=== PATIENT | female | born 1970 | race Caucasian/White ===

== ENCOUNTER 2017-07-04 08:00 | Emergency (ER) | payer BC ==
[2017-07-04] MEDS ORDERED: KETOROLAC TROMETHAMINE 30 MG/ML VIAL IM ONE (08:21)
--- NOTE | 2017-07-04 08:22 | ERNOTE ---
Abdominal HPI - Narrative Date of Service: 07/04/17 - General Chief Complaint: Abdominal Pain Time Seen by Provider: 07/04/17 08:22 Source: patient Exam Limitations: no limitations - Immun/Allergies/Home Medications Immunizatons: IMMUNIZATION HX Immunizations Up to Date Yes History of Influenza Vaccine Yes Hx Pneumococcal Vaccination No Allergies/Adverse Reactions: Allergies No Known Allergies Allergy (Verified 07/04/17 08:13) Home Medications: HOME MEDICATIONS Levofloxacin [Levaquin] 500 mg PO DAILY 07/04/17 [Last Taken Unknown] Metoprolol Tartrate [Lopressor] 50 mg PO DAILY 07/04/17 [Last Taken Unknown] Naproxen [Naprosyn] 375 mg PO BID #10 tab 07/04/17 [Last Taken Unknown] Promethazine HCl/Codeine [Prometh-Codein 6.25-10 mg/5 ml] 5 ml PO Q4H PRN [Last Taken Unknown] Rosuvastatin Calcium 20 mg PO DAILY 07/04/17 [Last Taken Unknown] Venlafaxine HCl [Venlafaxine HCl ER] 75 mg PO BID 07/04/17 [Last Taken Unknown] Zolpidem Tartrate 5 mg PO HS 07/04/17 [Last Taken Unknown] busPIRone HCL [Buspar] 1 - 2 tab PO HS 07/04/17 [Last Taken Unknown] - History of Present Illness Narrative: Patient presents to the ED for right sided rib pain. She has been sick for 2 weeks with the "flu". She relates that she had been coughing severely and has had right sided rib pain for 2 nearly two weeks also. SHe has been to the Chiropractor twice for this and been adjusted but it is worse over the last couple of days. She has also seen her PCP and been started on codeine cough syrup and Abx which she is taking. Mild SOB d/t pain, no acute. No calf pain or leg swelling. Nothing to suggest PE or DVT. Pain worse with movement and palpation. Pain can be severe with cough and palpation. Rught low ribs. NO clear abdominal pain. No hemoptysis. Timing: constant, getting worse Quality: moderate Activities at Onset: other - cough Modifying Factors - (Improves): Present: rest Modifying Factors - (Worsens): Present: coughing, movement, other - palpation Associated Symptoms: Absent: back pain, neck pain, fever/chills, vomiting Prior Abdominal Problems: Present: none Prior Treatment: Present: recently seen Review of Systems - Review of Systems Constitutional: Absent: fever ENT: Absent: sore throat Respiratory: Present: cough Cardiology: Present: See HPI Gastrointestinal/Abdominal: Absent: vomiting, diarrhea Genitourinary: Present: decreased urinary output. Absent: dysuria Skin: Absent: rash Neurological: Absent: weakness - Patient's Past Medical History Patient History - Medical: Anxiety, Depression, Migraines Patient History - Cardiac/Respiratory: Hypertension Patient History - Cancer: No Hx of Cancer Patient History - Surgical Procedures: Tubal Ligation Patient History - Other: None - Family History Mother Family History - Medical: Diabetes Type 2 - Social History Living Situations: home Psych History: Hx of Anxiety, Hx of Depression Smoking Status: Current every day smoker Have you smoked in the past 12 months: Yes - Immunizations Immunizations Up to Date: Yes Hx Pneumococcal Vaccination: No History of Influenza Vaccine: Yes Physical Exam - Physical Exam General Appearance: Present: alert, no apparent distress, other - occasoinal cough for which she holds her right side Head Exam: Present: normal inspection, no evidence of injury Eye Exam: Normal inspection: bilateral, PERRL: bilateral Ears, Nose, Throat: Present: normal ENT inspection Neck: Present: normal inspection Respiratory: Present: no respiratory distress, lungs clear, other - tubular breath sounds right base Cardiovascular/Chest: Present: regular rate, rhythm, normal peripheral pulses, other - right low rib tenderness seems to completely reproduce her Sx. Gastrointestinal/Abdominal: Present: normal bowel sounds, nondistended, soft, other - there is mild tenderenss with RUQ palpation but this seems to be on the ribs and not specifically RUQ. Back Exam: Present: normal inspection, normal range of motion. Absent: CVA tenderness (R), CVA tenderness (L) Extremity Exam: Present: normal inspection, non-tender, other - no DVT findings Neurological Exam: Present: alert, normal mood/affect, no motor/sensory deficits Skin Exam: Present: normal color, warm/dry ED Progress - Results and Orders Patient's Lab Results:: I have reviewed the patient's lab results. - Vital Signs Patient's Vital Signs:: I have reviewed the patient's vital signs. Vital Signs: Vital Signs 07/04/17 08:07 Temperature 36.3 C L Pulse Rate 102 H Respiratory 18 Rate Blood Pressure 159/90 O2 Sat by Pulse 97 Oximetry - X-Ray X-Ray #1 X-Ray: chest Interpretation: Interp. by me X-ray Comments: I reviewed images and official radiology report X-Ray #2 X-Ray: ribs Interpretation: Interp. by me X-ray Comments: I reviewed images and official radiology report - CT/Ultrasound CT/Ultrasound Narrative: I reviewed official radiology report - Progress/Reassessment Chief Complaint: Abdominal Pain Progress Note-Subjective: 07/04/17 11:44 Her pain seemed primarily reproduced right low rib palpation. I spoke with Dr Avitia and discussed her labs and exam/imaging/US. He recommends continued antibiotics and office f/u Saturday. Pt agreeable. Currently stable, non-toxic, no distress and improved with Toradol. I discussed warning signs and reasons to return as well as the need for close f/u. 07/04/17 11:47 Nothing to suggest PE, sepsis, toxicity or other clear acute life threat. Departure Clinical Impression: Rib pain, URI (upper respiratory infection), Cholelithiasis - Departure Disposition: Home self-care Condition: Stable Instructions: Cholelithiasis, [id number] Additional Instructions: Continue your antibiotics. Dr Avitia will see you in the office Saturday. Return here sooner for fever, increased pain, vomiting or if your condition worsens or changes in any way. Referrals: Poly Nguyen MD [Primary Care Provider] - Prescriptions: Naproxen [Naprosyn] 375 mg PO BID #10 tab
[2017-07-04] MEDS ORDERED: KETOROLAC TROMETHAMINE 30 MG/ML VIAL ONE (08:41)
[2017-07-04 08:42] LABS: Hematocrit 44.8 % (37.0-47.0); Hemoglobin 15.4 gm/dL (12.5-16.0); Mean Cell Volume 93.7 fl (78-100); Mean Corpuscular Hemoglobin 32.2 pg (27-31); Mean Corpuscular Hgb Conc 34.4 g/dl (32-36); Mean Platelet Volume 10.1 fl (6.0-9.5); Neutrophil # 13.4 K/mm3 (1.3-6.0); Neutrophil % 80.9 % (42-75.0); Platelet Count 242 K/mm3 (150-450); Red Blood Count 4.78 M/mm3 (4.2-5.4); Red Cell Distribution Width 12.6 % (11.5-14.0); White Blood Count 16.6 K/mm3 (4.0-10.5)
[2017-07-04 08:53] LABS: Albumin * 3.8 gm/dl (3.4-5.0); BUN/Creatinine Ratio 35.5 (9.0-21.6); Bilirubin, Total 0.3 mg/dL (0.0-1.1); Ca. Corrected For Albumin 9.5 mg/dL (8.4-10.2); Calcium * 9.7 mg/dL (7.9-10.9); Carbon Dioxide 26.5 mmol/L (24-32.6); Potassium 4.5 mmol/L (3.4-4.6); Total Protein 7.6 gm/dL (6.2-8.2)
[2017-07-04 11:40] VITALS: BP 137/87
== END 2017-07-04 11:58 | disposition home or self-care (01) ==
LOC: ER 08:00
DX: K80.20 Calculus of gallbladder without cholecystitis without obstruction (principal); J06.9 Acute upper respiratory infection, unspecified; R07.81 Pleurodynia; F17.200 Nicotine dependence, unspecified, uncomplicated; F41.9 Anxiety disorder, unspecified

== ENCOUNTER 2017-07-12 11:46 | Day surgery (SDC) | payer BC ==
[~2017-07-12 11:46] MED LIST: RINGER'S SOLUTION,LACTATED 1,000 ML IV PRN
[2017-07-12] MEDS ORDERED: RINGER'S SOLUTION,LACTATED 1,000 ML IV ONE ×2 (12:32→15:00)
[2017-07-12] MEDS ORDERED: BUPIVACAINE HCL 50 ML VIAL IJ ONE (15:05)
--- NOTE | 2017-07-12 16:09 | OR ---
Operative Report - Dictated Report Narrative: Date: 07/12/2017 Preoperative diagnosis: Chronic cholecystitis Postoperative diagnosis: Same Procedure: Laparoscopic cholecystectomy Staff surgeon: Mehul Avitia MD Anesthesia: Gen. endotracheal EBL: 20 mL Specimens: Gallbladder Drains: None Complications: None apparent Description: Patient was placed in the supine position and following the smooth induction of general endotracheal anesthesia the abdomen was prepped and draped in a sterile fashion all port sites were anesthetized with Marcaine prior to incision. An infraumbilical incision was carried out and the abdomen was entered under direct vision with a 5 mm blunt port with the scope within the lumen of the trocar the abdomen was then insufflated to a pressure of 15 mmHg with carbon dioxide. Under direct vision a superior midline 12 mm port into right flank 5 mm ports were inserted. The fundus of the gallbladder was grasped and elevated towards the diaphragm. The infundibulum was grasped for countertraction. Dissection around the cystic duct was carried out and there was an anterior cystic artery was doubly clipped and divided. The cystic duct was isolated and doubly clipped and divided. There was a small posterior branch that was clipped and divided. The gallbladder was then taken out of the fossa with combination of blunt dissection scissor dissection electrocautery. Once liberated the gallbladder was placed in an Endo Catch bag and delivered through the superior midline port. This port was returned to the abdominal cavity. Pneumoperitoneum was reestablished. Inspection was carried out. Hemostasis appeared to be adequate. There was no evidence of bile leak. The right upper quadrant was irrigated and the irrigant was evacuated. The remainder of the Marcaine was squirted into the peritoneal cavity. The superior midline fascial defect was closed using a Luis Saroj device and heavy Vicryl suture. The pneumoperitoneum was evacuated. The remainder of the ports were removed. The incisions were closed with subcuticular stitches of 4-0 Vicryl and sealed with Dermabond. The patient tolerated the procedure well without any apparent complications and was discharged from the operating room in stable condition.
[2017-07-12] MEDS ORDERED: HYDROcodone/ACETAMINOPHEN 1 EACH TABLET ONE ×2 (17:04)
[2017-07-12 18:13] VITALS: BP 151/97
== END 2017-07-12 11:47 | disposition home or self-care (01) ==
LOC: AMB 11:46
PROVIDERS: ATTEND Specialist
PROC: 0FT44ZZ Resection of Gallbladder, Percutaneous Endoscopic Approach (ICD-10-PCS; principal; 2017-07-12 13:55)
DX: K81.1 Chronic cholecystitis (principal); I10 Essential (primary) hypertension; F17.200 Nicotine dependence, unspecified, uncomplicated; Z68.26 Body mass index [BMI] 26.0-26.9, adult

== ENCOUNTER 2017-08-26 06:59 | Emergency (ER) | payer BC ==
[2017-08-26 07:43] LABS: Hematocrit 43.3 % (37.0-47.0); Hemoglobin 14.7 gm/dL (12.5-16.0); Mean Cell Volume 91.7 fl (78-100); Mean Corpuscular Hemoglobin 31.1 pg (27-31); Mean Corpuscular Hgb Conc 33.9 g/dl (32-36); Mean Platelet Volume 10.1 fl (6.0-9.5); Neutrophil # 6.7 K/mm3 (1.3-6.0); Neutrophil % 68.3 % (42-75.0); Platelet Count 270 K/mm3 (150-450); Red Blood Count 4.72 M/mm3 (4.2-5.4); Red Cell Distribution Width 12.7 % (11.5-14.0); White Blood Count 9.9 K/mm3 (4.0-10.5)
--- NOTE | 2017-08-26 07:46 | ERNOTE ---
Chest Pain/Cardiac HPI Date of Service: 08/26/17 Chief Complaint: Chest Pain Time Seen by Provider: 08/26/17 07:23 Source: patient Exam Limitations: no limitations Immunizations: IMMUNIZATION HX Immunizations Up to Date Yes History of Influenza Vaccine Yes Hx Pneumococcal Vaccination No Allergies/Adverse Reactions: Allergies No Known Allergies Allergy (Verified 08/26/17 07:14) Home Medications: HOME MEDICATIONS Rosuvastatin Calcium 20 mg PO DAILY 07/04/17 [Last Taken Unknown] Venlafaxine HCl [Venlafaxine HCl ER] 75 mg PO DAILY 07/04/17 [Last Taken Unknown ] Zolpidem Tartrate 5 mg PO HS 07/04/17 [Last Taken Unknown] busPIRone HCL [Buspar] 1 - 2 tab PO HS 07/04/17 [Last Taken Unknown] Ibuprofen [Motrin] 800 mg PO TID #15 tablet 07/12/17 [Last Taken Unknown] Metoprolol Tartrate [Lopressor] 100 mg PO BID 07/12/17 [Last Taken 07/12/17 10: 30] Narrative: left scapular pain for the last few months. No injury. No strain. She has had left anterior chest pain since yesterday afternoon. Hurts with breathing and movement. Some cough, no sputum. Is a smoker. No hemoptysis. No rash. No abd pain. No cardiac history except hypertension, is on metoprolol. Timing: constant Severity/Quality: moderate, sharp Location: left chest Chest Pain Radiation: arms Activities at Onset: none Modifying Factors - Improves: Present: breathing, movement Aspirin Treatment Today: no aspirin today Associated Symptoms: Present: denies symptoms Prior Chest Pain/Cardiac Workup: Reports: no prior cardiac workup Review of Systems - Review of Systems Constitutional: Absent: fever, chills ENT: Present: no symptoms reported Respiratory: Present: cough. Absent: wheezing Cardiology: Present: chest pain. Absent: syncope, edema Gastrointestinal/Abdominal: Present: no symptoms reported Genitourinary: Present: no symptoms reported Musculoskeletal: Present: no symptoms reported Skin: Present: no symptoms reported Neurological: Present: no symptoms reported - Patient's Past Medical History Patient History - Medical: Anxiety, Depression, Migraines Patient History - Cardiac/Respiratory: Hypertension Patient History - Cancer: No Hx of Cancer Patient History - Surgical Procedures: Cholecystectomy, Tubal Ligation, Other Patient History - Other: None LMP (females 10-50): last week - Family History Mother Family History - Medical: Diabetes Type 2 Family History - Cardiac/Respiratory: Hypertension, Other Family History - Cancer: No pertinent family hx Father Family History - Medical: No pertinent hx Family History - Cardiac/Respiratory: Hypertension, Other Family History - Cancer: No pertinent family hx - Social History Living Situations: home Abuse History: No History of abuse Psych History: Hx of Anxiety, Hx of Depression Smoking Status: Current every day smoker Have you smoked in the past 12 months: Yes Do you dip or chew tobacco: No Alcohol Use: occasionally Drug Use: none - Immunizations Immunizations Up to Date: Yes Hx Pneumococcal Vaccination: No History of Influenza Vaccine: Yes Physical Exam - Physical Exam General Appearance: Present: wd/wn, alert, mild distress Head Exam: Present: normal inspection Neck: Present: normal inspection, full range of motion Respiratory: Present: chest tenderness - left upper CC joints, wheezing - left upper anterior chest. Absent: respiratory distress, accessory muscle use, decreased breath sounds Cardiovascular/Chest: Present: regular rate, rhythm, tachycardia Gastrointestinal/Abdominal: Present: normal bowel sounds, nontender, no organomegaly Back Exam: Present: normal inspection, no CVA tenderness, other - mild tender over left scapula Neurological Exam: Present: alert, oriented ED Progress - Vital Signs Patient's Vital Signs:: I have reviewed the patient's vital signs. Vital Signs: Vital Signs 08/26/17 08/26/17 07:10 07:15 Temperature 36.6 C Pulse Rate 91 90 Respiratory 12 Rate Blood Pressure 149/91 O2 Sat by Pulse 97 Oximetry - EKG EKG: other - sinus tachycardia, otherwise unremarkable EKG read: Reviewed by me - Progress/Reassessment Chief Complaint: Chest Pain - Transfer of Care Physician Sign Out: Luis Angel Morales Brief History: smoker, left anterior chest pain, wheeze Receiving Physician: Amauri Sales Pending Results: Labs, X-ray results Expected Disposition: Discharge Departure Clinical Impression: Chest pain in adult - Departure Disposition: [facility] Condition: Stable Referrals: Poly Nguyen MD [Primary Care Provider] -
[2017-08-26 08:01] LABS: Troponin I Less than 0.017 ng/ml (0.00-0.10)
[2017-08-26 08:06] LABS: ALT 49 U/L (19-67); AST 23 U/L (0-48); Albumin * 3.5 gm/dl (3.4-5.0); Alkaline Phosphatase * 80 U/L (50-170); Anion Gap 11.7 mmol/L (6.8-13.8); BUN/Creatinine Ratio 17.3 (9.0-21.6); Bilirubin, Total 0.2 mg/dL (0.0-1.1); Blood Urea Nitrogen 14 mg/dL (3-23); Ca. Corrected For Albumin 8.9 mg/dL (8.4-10.2); Calcium * 8.8 mg/dL (7.9-10.9); Carbon Dioxide 26.4 mmol/L (24-32.6); Chloride 101 mmol/L (97-106); Glucose * 122 mg/dL (70-110); Potassium 4.1 mmol/L (3.4-4.6); Sodium 135 mmol/L (132-142)
[2017-08-26 09:00] VITALS: BP 145/77
== END 2017-08-26 08:49 | disposition home or self-care (01) ==
LOC: ER 06:59
DX: F17.200 Nicotine dependence, unspecified, uncomplicated; I10 Essential (primary) hypertension; R07.89 Other chest pain; F41.9 Anxiety disorder, unspecified

== ENCOUNTER 2020-07-16 17:11 | Observation (INO) ==
[2020-07-16] MEDS ORDERED: ADENOSINE 3 MG/ML DISP.SYRIN IV ONE ×2 (17:26→17:30)
[2020-07-16] MEDS ORDERED: METOPROLOL TARTRATE 1 MG/ML AMPUL IV ONE ×3 (17:36→18:16)
[2020-07-16 17:40] LABS: Hematocrit 55.4 % (37.0-47.0); Hemoglobin 18.6 gm/dL (12.5-16.0); Mean Cell Volume 99.3 fl (78-100); Mean Corpuscular Hemoglobin 33.3 pg (27-31); Mean Corpuscular Hgb Conc 33.6 g/dl (32-36); Neutrophil # 11.5 K/mm3 (1.3-6.0); Neutrophil % 79.9 % (42-75.0); Platelet Count 288 K/mm3 (150-450); Red Blood Count 5.58 M/mm3 (4.2-5.4); Red Cell Distribution Width 14.3 % (11.5-14.0); White Blood Count 14.3 K/mm3 (4.0-10.5)
[2020-07-16] MEDS ORDERED: ASPIRIN 81 MG TAB.CHEW PO ONE (17:49)
[2020-07-16] MEDS ORDERED: NORMAL SALINE 1,000 ML IV ONE (17:49)
[2020-07-16 17:54] LABS: Prothrombin Time (Patient) 10.6 Seconds (9.1-10.7)
[2020-07-16 17:58] LABS: INR 1.07 INR (0.92-1.08); Partial Thrombolplastin Time 24.8 Seconds (24-32)
[2020-07-16 18:00] LABS: Albumin * 3.8 gm/dl (3.4-5.0); Anion Gap 23.8 mmol/L (6.8-13.8); BUN/Creatinine Ratio 5.4 (9.0-21.6); Bilirubin, Total 0.6 mg/dL (0.0-1.1); Calcium * 9.2 mg/dL (7.9-10.9); Potassium 3.8 mmol/L (3.4-4.6); Total Protein 8.4 gm/dL (6.2-8.2); Troponin I 0.056 ng/mL (0.00-0.10)
--- NOTE | 2020-07-16 18:03 | ERNOTE ---
Chest Pain/Cardiac HPI Date of Service: 07/16/20 Chief Complaint: Chest Pain Time Seen by Provider: 07/16/20 17:15 Source: patient, RN notes reviewed Exam Limitations: no limitations Immunizations: IMMUNIZATION HX Immunizations Up to Date Yes History of Influenza Vaccine No Hx Pneumococcal Vaccination No Allergies/Adverse Reactions: Allergies No Known Allergies Allergy (Verified 07/01/20 15:39) Home Medications: HOME MEDICATIONS Metoprolol Tartrate [Lopressor] 100 mg PO BID 07/12/17 [Last Taken 05/25/19 21:00] hydrochlorothiazide 25 mg tablet 25 mg PO DAILY 04/28/18 [Last Taken Unknown] omeprazole 40 mg capsule,delayed release 40 mg PO DAILY capsule. 01/18/20 [Last Taken Unknown] potassium chloride 10 mEq tablet,extended release 20 meq PO DAILY tab 01/18/20 [Last Taken Unknown] Narrative: Vane 50-year-old female who presents to the emergency department for chest pain and palpitations. She also reports a headache for 3 days. She states that her heart has been beating extremely fast all day. She has occasional episodes of this which usually resolve after a few minutes. She also has migraine headaches. She describes her chest pain as a pressure in the anterior chest. She takes metoprolol for high blood pressure and for her migraines. She attempted to take this today but vomited. She did not have the symptoms when she woke up this morning. She states that she got up briefly and then went back to bed. Her symptoms started shortly afterward. She reports having a cough, but admits that she is a smoker. 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 She was tested and this was negative at that time. He does not believe she has had fevers. She sees a neurologist for her headaches. Her migraine medication was recently changed. She also sees cardiology (Dr. Carl) for her blood pressure. Her LMP was 07/05/20. Date (Duration): 07/16/20 Timing: constant Severity/Quality: pressure Location: substernal Chest Pain Radiation: no radiation Activities at Onset: rest Modifying Factors - Improves: Present: nothing Modifying Factors - Worsens: Present: nothing Nitro Today/Relief: no nitro taken today Aspirin Treatment Today: no aspirin today Associated Symptoms: Present: headache, nausea, vomiting Prior Chest Pain/Cardiac Workup: Reports: prior chest pain. Denies: heart attack Prior Treatment: Reports: recently seen Review of Systems - Review of Systems Constitutional: Present: fatigue, malaise. Absent: fever EYE: Absent: eye pain, vision changes ENT: Absent: ear pain, nose congestion, nasal drainage, sore throat Respiratory: Present: shortness of breath, cough Cardiology: Present: chest pain, palpitations. Absent: edema Gastrointestinal/Abdominal: Present: nausea, vomiting. Absent: diarrhea, abdominal pain Genitourinary: Present: no symptoms reported Musculoskeletal: Absent: muscle pain, joint pain Skin: Absent: rash, lesions Neurological: Present: headache. Absent: dizziness/light-headedness Endocrine: Present: no symptoms reported Hematologic/Lymphatic: Absent: easy bruising, easy bleeding Psych: Present: no symptoms reported Medical History (Last Reviewed 07/16/20 @ 19:40 by Elsa Arenas NP) De Quervain's tenosynovitis, right (Acute) Hypertension Onset Date: Unknown Migraine Onset Date: Unknown Gestational diabetes Onset Date: Unknown Surgical History: Surgical History (Last Reviewed 07/16/20 @ 19:40 by Elsa Arenas NP) History of laparoscopic cholecystectomy Onset Date: 07/12/17 History of shoulder surgery Onset Date: Unknown right shoulder, Dr Singleton. 2002 History of tubal ligation Onset Date: ~1997 Family History: Family History (Last Reviewed 07/16/20 @ 19:40 by Elsa Arenas NP) Father Hypertension Heart disease Mother Heart disease Hypertension Diabetes Social History: (Last Reviewed 07/16/20 @ 19:40 by Elsa Arenas NP) Social History: Marital status: number of children: 2 Service: No Tobacco: Smoking Status: Current every day smoker Smoking cigarettes per day: 20 Alcohol: alcohol intake: current alcohol intake frequency: a few times a month Substance Use: substance use type: does not use Dietary Habits: caffeine: Yes Physical Exam - Physical Exam General Appearance: Present: wd/wn, alert, moderate distress Head Exam: Present: normal inspection Eye Exam: Normal inspection: bilateral Neck: Present: normal inspection, nontender, supple Respiratory: Present: normal breath sounds, lungs clear, accessory muscle use - mild dyspnea Cardiovascular/Chest: Present: no murmur, tachycardia Extremity Exam: Present: normal inspection, normal range of motion, no edema Neurological Exam: Present: alert, oriented, normal mood/affect, no motor/sensory deficits Skin Exam: Present: normal color, warm/dry Progress - Results and Orders Patient's Lab Results:: I have reviewed the patient's lab results. - Vital Signs Patient's Vital Signs:: I have reviewed the patient's vital signs. Vital Signs: Vital Signs 07/16/20 17:11 07/16/20 17:39 07/16/20 17:49 Temperature 36.4 C Pulse Rate 169 H 146 H 112 H Respiratory Rate 19 Blood Pressure 175/116 H 190/120 H 165/109 H O2 Sat by Pulse Oximetry 98 - EKG EKG #1 EKG: supraventricular tachycardia - Rate 171 EKG read: Reviewed by me EKG #2 EKG: NSR - Rate 97 EKG read: Reviewed by me - X-Ray X-Ray #1 X-Ray: chest Interpretation: Interp. by me X-ray Comments: No acute cardiopulmonary findings - Progress/Reassessment Chief Complaint: Chest Pain Progress:: Improved Progress Note-Subjective: 07/16/20 18:56 The patient was initially given 2 doses of adenosine. There was no change with the first dose of 6 mg. The second dose of 12 mg of briefly slowed her heart rate but it again returned to the 170s. She was then given metoprolol 5 mg IV push. Her heart rate improved to the 130s. After a second dose, her heart rate was in the low 100s. A third dose was given and she has since been mostly in the upper 90s. Her blood pressure was initially elevated in the 170s over 110's. This has improved somewhat but was still elevated at 150/106 when last taken. Her chest pain and dyspnea resolved with improvement in her heart rate. She was also given Toradol, Reglan and Benadryl for her headache, which has now resolved. Dr. Nuno was contacted and the patient will be admitted to observation pending her COVID-19 results. Departure Clinical Impression: SVT (supraventricular tachycardia) Chest pain Qualifiers: Chest pain type: unspecified Qualified Code(s): R07.9 - Chest pain, unspecified - Departure Disposition: Still a patient Condition: Stable Referrals: Poly Nguyen MD [Primary Care Provider] -
[2020-07-16] MEDS ORDERED: METOCLOPRAMIDE HCL 5 MG/ML VIAL IV ONE (18:16)
[2020-07-16] MEDS ORDERED: diphenhydrAMINE HCL 50 MG/ML VIAL IV ONE (18:16)
[2020-07-16] MEDS ORDERED: KETOROLAC TROMETHAMINE 30 MG/ML VIAL IV ONE (18:16)
[2020-07-16 20:39] LABS: Urine Bilirubin 1 mg/dl (NEGATIVE); Urine Blood 50 /ul (NEGATIVE); Urine Ketone Large mg/dL (NEGATIVE); Urine Nitrite Negative (NEGATIVE); Urine Protein 100 mg/dL (NEGATIVE); Urine Specific Gravity >=1.030 SP.GR. (1.005-1.010); Urine Urobilinogen Normal (NORMAL)
[2020-07-16 20:52] LABS: Urine Appearance Cloudy (CLEAR); Urine Bacteria 1+; Urine Color Yellow; Urine RBC 0-5 /hpf (0-5); Urine WBC TRACE /hpf (0-5)
[2020-07-17] MEDS ORDERED: NITROGLYCERIN 0.4 MG/TAB BTL SL ONE (05:26)
[2020-07-17] MEDS ORDERED: NITROGLYCERIN 0.4 MG/TAB BTL SL PRN (05:29)
[2020-07-17] MEDS ORDERED: METOPROLOL TARTRATE 1 MG/ML AMPUL IV ONE ×2 (05:29→05:30)
[2020-07-17] MEDS ORDERED: METOPROLOL TARTRATE 50 MG TABLET ONE (07:23)
[2020-07-17] MEDS ORDERED: METOPROLOL TARTRATE 100 MG TABLET PO SCH ×2 (09:00→21:00)
[2020-07-17] MEDS ORDERED: HYDROCHLOROTHIAZIDE 25 MG TABLET PO SCH (11:00)
--- NOTE | 2020-07-17 12:04 | HPDIS ---
Chief Complaint - Chief Complaint Date of Service: 07/17/20 Time of Service: 08:00 Chief Complaint: Racing heart History of Present Illness: Vane is a 50 yo female with known history of recurrent SVT. She reports having an episode yesterday that did not go away. She reports she often has symptoms of fast heart rate but they will typically resolve on their own within minutes. Yesterday's episode continued and she presented to the [facility] ER. She was given Adenosine twice in the ER without improvement. She was given IV metoprolol which helped to bring down her heart rate and resolve her symptoms. She went from 160s to 112 after metoprolol. Her initial troponin was normal. She has been taking all of her home medications, she avoids caffeine, and has not felt ill. She reports staying well hydrated and has been eating normally. She normally follows with Dr. Carl for Cardiology. She cannot think of anything that has been different in the last few days. When she was given her home oral metoprolol this morning her heart rate went down to 70 bpm. She denies missing any doses of medication. Medical History (Last Reviewed 07/16/20 @ 21:47 by Kary Mg RN) De Quervain's tenosynovitis, right (Acute) Hypertension Onset Date: Unknown Migraine Onset Date: Unknown Gestational diabetes Onset Date: Unknown Surgical History: Surgical History (Last Reviewed 07/16/20 @ 21:47 by Kary Mg RN) History of laparoscopic cholecystectomy Onset Date: 07/12/17 History of shoulder surgery Onset Date: Unknown right shoulder, Dr Singleton. 2002 History of tubal ligation Onset Date: ~1997 Family History: Family History (Last Reviewed 07/16/20 @ 21:47 by Kary Mg RN) Father Hypertension Heart disease Mother Heart disease Hypertension Diabetes Social History: (Last Reviewed 07/16/20 @ 21:47 by Kary Mg RN) Social History: Marital status: number of children: 2 Service: No Tobacco: Smoking Status: Current every day smoker Smoking cigarettes per day: 20 Alcohol: alcohol intake: current alcohol intake frequency: a few times a month Substance Use: substance use type: does not use Dietary Habits: caffeine: Yes Review Of Systems (GEN) - Review of Systems Generalized/Overall Review: Absent: Weakness, Chills, Fever EENTM: Present: No Symptoms Reported Respiratory: Present: Shortness of Breath. Absent: Cough Cardiac: Present: Palpitations. Absent: Chest Pain, Edema Abdominal: Absent: Nausea, Vomiting Genitourinary: Present: No Symptoms Reported Musculoskeletal: Present: No Symptoms Reported Neurological: Present: No Symptoms Reported Skin: Present: No Symptoms Reported Endocrine: Present: No Symptoms Reported Immunizations: IMMUNIZATION HX Immunizations Up to Date Yes History of Influenza Vaccine No Hx Pneumococcal Vaccination No Allergies/Adverse Reactions: Allergies Allergy/AdvReac Type Severity Reaction Status Date / Time No Known Allergies Allergy Verified 07/01/20 15:39 Home Medications: HOME MEDICATIONS Metoprolol Tartrate [Lopressor] 100 mg PO BID 07/12/17 [Last Taken 05/25/19 21:00] hydrochlorothiazide 25 mg tablet 25 mg PO DAILY 04/28/18 [Last Taken Unknown] omeprazole 40 mg capsule,delayed release 40 mg PO DAILY capsule. 01/18/20 [Last Taken Unknown] potassium chloride 10 mEq tablet,extended release 20 meq PO DAILY tab 01/18/20 [Last Taken Unknown] Exam - Exam Vital Signs: Vital Signs - Last Taken Temp 36.4 C 07/17/20 09:54 Pulse 70 07/17/20 09:54 Resp 20 07/17/20 09:54 BP 176/95 H 07/17/20 09:54 Pulse Ox 99 07/17/20 09:54 Constitutional: Present: Alert, Oriented x3, Cooperative ENT Exam: Present: hearing grossly normal Eye Exam: bilateral eye: normal inspection Respiratory: Present: lungs clear, normal breath sounds, no respiratory distress Cardiovascular/Chest: Present: regular rate, rhythm, no edema, no murmur Peripheral Pulses: radial (R): 2+, radial (L): 2+ Abdomen: Present: Normal bowel sounds, soft, nontender, nondistended Skin Exam: Present: normal color, warm/dry, no cyanosis Lymphatic: Present: no adenopathy Appearance: Present: appropriate appearance, appropriate insight Eye contact: Present: cooperative, good eye contact, normal speech Thoughts: Present: normal thought pattern, no apparent hallucination Diagnostic Studies: Abnormal Lab Results 07/16/20 07/16/20 07/16/20 Range/Units 17:35 17:35 18:07 WBC 14.3 H (4.0-10.5) K/mm3 RBC 5.58 H (4.2-5.4) M/mm3 Hgb 18.6 H (12.5-16.0) gm/dL Hct 55.4 H (37.0-47.0) % MCH 33.3 H (27-31) pg RDW 14.3 H (11.5-14.0) % Immature Gran # (Auto) 0.04 H (0.000-0.0310) K/mm3 Neutrophils % 79.9 H (42-75.0) % Lymphocytes % 14.6 L (20-51) % Neutrophils # 11.5 H (1.3-6.0) K/mm3 Chloride 95 L (97-106) mmol/L Carbon Dioxide 18.0 L (24-32.6) mmol/L Anion Gap 23.8 H (6.8-13.8) mmol/L BUN/Creatinine Ratio 5.4 L (9.0-21.6) Random Glucose 112 H (70-110) mg/dL AST 65 H (0-48) U/L ALT 89 H (19-67) U/L Total Protein 8.4 H (6.2-8.2) gm/dL Urine Protein 100 H (NEGATIVE) mg/dL Urine Blood 50 H (NEGATIVE) /ul Urine Bilirubin 1 H (NEGATIVE) mg/dl Prot Sulfosalicylic Acd 3+ H (0) mg/dL Urine WBC Trace H (0-5) /hpf Urine Bacteria 1+ H (NONE) Laboratory Results WBC 14.3 K/mm3 (4.0-10.5) H 07/16/20 17:35 RBC 5.58 M/mm3 (4.2-5.4) H 07/16/20 17:35 Hgb 18.6 gm/dL (12.5-16.0) H 07/16/20 17:35 Hct 55.4 % (37.0-47.0) H 07/16/20 17:35 MCV 99.3 fl (78-100) 07/16/20 17:35 MCH 33.3 pg (27-31) H 07/16/20 17:35 MCHC 33.6 g/dl (32-36) 07/16/20 17:35 RDW 14.3 % (11.5-14.0) H 07/16/20 17:35 Plt Count 288 K/mm3 (150-450) 07/16/20 17:35 MPV 10.0 fl (8-12.5) 07/16/20 17:35 Immature Gran % (Auto) 0.30 % (0.001-0.429) 07/16/20 17:35 Immature Gran # (Auto) 0.04 K/mm3 (0.000-0.0310) H 07/16/20 17:35 Neutrophils % 79.9 % (42-75.0) H 07/16/20 17:35 Lymphocytes % 14.6 % (20-51) L 07/16/20 17:35 Monocytes % 4.3 % (0.0-9) 07/16/20 17:35 Eosinophils % 0.1 % (0.0-3.0) 07/16/20 17:35 Basophils % 0.8 % (0.0-1.0) 07/16/20 17:35 Nucleated RBC % 0.0 k/mm3 (0-1) 07/16/20 17:35 Neutrophils # 11.5 K/mm3 (1.3-6.0) H 07/16/20 17:35 Lymphocytes # 2.09 k/mm3 (1.5-3.5) 07/16/20 17:35 Monocytes # 0.6 k/mm3 (0.0-1.0) 07/16/20 17:35 Eosinophils # 0.0 k/mm3 (0.0-0.7) 07/16/20 17:35 Absolute Basophils 0.1 k/mm3 (0.0-0.1) 07/16/20 17:35 PT 10.6 Seconds (9.1-10.7) 07/16/20 17:35 INR (Anticoag Therapy) 1.07 INR (0.92-1.08) 07/16/20 17:35 PTT ([place]) 24.8 Seconds (24-32) 07/16/20 17:35 Sodium 133 mmol/L (132-142) 07/16/20 17:35 Plasma Sodium 133 mmol/L (130-142) 07/16/20 17:35 Potassium 3.8 mmol/L (3.4-4.6) 07/16/20 17:35 Chloride 95 mmol/L (97-106) L 07/16/20 17:35 Carbon Dioxide 18.0 mmol/L (24-32.6) L 07/16/20 17:35 Anion Gap 23.8 mmol/L (6.8-13.8) H 07/16/20 17:35 BUN 5 mg/dL (3-23) 07/16/20 17:35 Creatinine 0.93 mg/dL (0.4-1.4) 07/16/20 17:35 Est GFR (Non-Af Amer) 68 mL/min (60-130) 07/16/20 17:35 BUN/Creatinine Ratio 5.4 (9.0-21.6) L 07/16/20 17:35 Random Glucose 112 mg/dL (70-110) H 07/16/20 17:35 Calcium 9.2 mg/dL (7.9-10.9) 07/16/20 17:35 Calcium Adj for Albumin 9.0 mg/dL (8.4-10.2) 07/16/20 17:35 Total Bilirubin 0.6 mg/dL (0.0-1.1) 07/16/20 17:35 AST 65 U/L (0-48) H 07/16/20 17:35 ALT 89 U/L (19-67) H 07/16/20 17:35 Alkaline Phosphatase 87 U/L (50-170) 07/16/20 17:35 Troponin I 0.028 ng/mL (0.00-0.10) 07/17/20 05:45 Total Protein 8.4 gm/dL (6.2-8.2) H 07/16/20 17:35 Albumin 3.8 gm/dl (3.4-5.0) 07/16/20 17:35 Urine Color Yellow 07/16/20 18:07 Urine Appearance Cloudy (CLEAR) 07/16/20 18:07 Urine pH 6.0 pH (5.0-7.0) 07/16/20 18:07 Ur Specific [place] >=1.030 SP.GR. (1.005-1.010) 07/16/20 18:07 Urine Protein 100 mg/dL (NEGATIVE) H 07/16/20 18:07 Urine Glucose (UA) Negative mg/dL (NEGATIVE) 07/16/20 18:07 Urine Ketones Large mg/dL (NEGATIVE) 07/16/20 18:07 Urine Blood 50 /ul (NEGATIVE) H 07/16/20 18:07 Urine Nitrate Negative (NEGATIVE) 07/16/20 18:07 Urine Bilirubin 1 mg/dl (NEGATIVE) H 07/16/20 18:07 Urine Ictotest Negative (NEGATIVE) 07/16/20 18:07 Prot Sulfosalicylic Acd 3+ mg/dL (0) H 07/16/20 18:07 Urine Urobilinogen Normal EU/dl (NORMAL) 07/16/20 18:07 Ur Leukocyte Esterase Negative /ul (NEGATIVE) 07/16/20 18:07 Urine RBC 0-5 /hpf (0-5) 07/16/20 18:07 Urine WBC Trace /hpf (0-5) H 07/16/20 18:07 Ur Epithelial Cells 0-5 /hpf (0-5) 07/16/20 18:07 Urine Bacteria 1+ (NONE) H 07/16/20 18:07 Urine Culture Comments No culture indicated 07/16/20 18:07 SARS-CoV-2 (PCR) Not detected (NotDetected) 07/16/20 19:15 Assessment/Plan - Narrative Narrative: Vane is a 50 yo female admitted for an atypical episode of SVT. She has a known history of SVT, but the episodes are usually brief. Because of the unusual behavior of this episode she will be admitted to observation with repeat troponin. She will be continued on home medications. If troponin is normal and she continues to do well with her home medications will discharge her to home later on today. - Assessment/Plan (1) SVT (supraventricular tachycardia) Problem: Acute (2) Chest pain Problem: Acute Qualifiers: Chest pain type: unspecified Qualified Code(s): R07.9 - Chest pain, unspecified (1) SVT (supraventricular tachycardia) Problem: Resolved (2) Chest pain Problem: Resolved Qualifiers: Chest pain type: unspecified Qualified Code(s): R07.9 - Chest pain, unspecified Date of Discharge:: 07/17/20 Hospital Course: Vane was admitted for an atypical SVT episode compared to her normal episodes. This episode ultimately responded to IV metoprolol and then taking a dose of her oral metoprolol 100mg. Since then she has done well and heart rate has been around 70. She has been up to the bathroom and has not had any further episodes of tachycardia or chest discomfort. Troponin was negative. I will discharge her to home and she may follow up with Dr. Carl. I will not change her medication at this time just because of this one atypical episode. Procedures Performed: none Results and Findings: Lab Pending Results 07/16/20 17:35: WBC 14.3 H, RBC 5.58 H, Hgb 18.6 H, Hct 55.4 H, MCV 99.3, MCH 33.3 H, MCHC 33.6, RDW 14.3 H, Plt Count 288, MPV 10.0, Immature Gran % (Auto) 0.30, Immature Gran # (Auto) 0.04 H, Neutrophils % 79.9 H, Lymphocytes % 14.6 L, Monocytes % 4.3, Eosinophils % 0.1, Basophils % 0.8, Nucleated RBC % 0.0, Neutrophils # 11.5 H, Lymphocytes # 2.09, Monocytes # 0.6, Eosinophils # 0.0, Absolute Basophils 0.1 07/16/20 17:35: PT 10.6, INR (Anticoag Therapy) 1.07, PTT ([place]) 24.8 07/16/20 17:35: Sodium 133, Plasma Sodium 133, Potassium 3.8, Chloride 95 L, Carbon Dioxide 18.0 L, Anion Gap 23.8 H, BUN 5, Creatinine 0.93, Est GFR (Non-Af Amer) 68, BUN/Creatinine Ratio 5.4 L, Random Glucose 112 H, Calcium 9.2, Calcium Adj for Albumin 9.0, Total Bilirubin 0.6, AST 65 H, ALT 89 H, Alkaline Phosphatase 87, Troponin I 0.056, Total Protein 8.4 H, Albumin 3.8 07/16/20 18:07: Urine Color Yellow, Urine Appearance Cloudy, Urine pH 6.0, Ur Specific [place] >=1.030, Urine Protein 100 H, Urine Glucose (UA) Negative, Urine Ketones Large, Urine Blood 50 H, Urine Nitrate Negative, Urine Bilirubin 1 H, Urine Ictotest Negative, Prot Sulfosalicylic Acd 3+ H, Urine Urobilinogen Normal, Ur Leukocyte Esterase Negative, Urine RBC 0-5, Urine WBC Trace H, Ur Epithelial Cells 0-5, Urine Bacteria 1+ H, Urine Culture Comments No culture indicated 07/16/20 19:15: SARS-CoV-2 (PCR) Not detected 07/17/20 05:45: Troponin I 0.028 Discharge Location: Home Disposition: Home self-care Condition: Good Discharge Activity: Activity as tolerated Discharge Diet: General/regular food Referrals: Evans Carl MD [Associate] - (Next available) Problem Oriented Discharge Instructions to Patient/Family: Supraventricular Tachycardia, Adult Complete Home Medications List: Complete Home Medication List: Metoprolol Tartrate [Lopressor] 100 mg PO BID 07/12/17 hydrochlorothiazide 25 mg tablet 25 mg PO DAILY 04/28/18 omeprazole 40 mg capsule,delayed release 40 mg PO DAILY capsule. 01/18/20 potassium chloride 10 mEq tablet,extended release 20 meq PO DAILY tab 01/18/20
[2020-07-17 12:34] VITALS: BP 168/99
[2020-07-18] MEDS ORDERED: PANTOPRAZOLE SODIUM 40 MG TABLET.EC PO SCH (07:00)
[2020-07-18] MEDS ORDERED: POTASSIUM CHLORIDE 10 MEQ TABLET.SA PO SCH (09:00)
[2020-07-18] MEDS ORDERED: HYDROCHLOROTHIAZIDE 25 MG TABLET PO SCH (09:00)
[2020-07-18 15:00] LABS: T4 Free * 1.09 ng/dL (0.76-1.46); TSH * 2.598 uIU/mL (0.358-3.74)
== END 2020-07-17 12:45 | disposition home or self-care (01) ==
LOC: ER 17:11 → MS 17:11
PROVIDERS: ADMIT Family Medicine; ATTEND Family Medicine
DX: I47.1 Supraventricular tachycardia; R07.9 Chest pain, unspecified; I10 Essential (primary) hypertension; Z79.899 Other long term (current) drug therapy; Z72.0 Tobacco use